=== PATIENT | male | born 1970 | race Caucasian/White ===

== ENCOUNTER 2018-01-06 14:09 | Inpatient (IN) | payer SELFPAY ==
--- NOTE | 2018-01-06 14:44 | CPEKG ---
Heart Rate: 61 RR Interval: 984 P-R Interval: 148 QRSD Interval: 96 QT Interval: 428 QTC Interval: 431 P [place]: 48 QRS [place]: 63 T Wave [place]: 58 EKG Severity - NORMAL ECG - EKG Impression: SINUS RHYTHM Electronically Signed By: Eliel Aguiar 06-Jan-2018 14:50:06
[2018-01-06] MEDS ORDERED: ONDANSETRON 4 MG/2 ML VIAL IVP ONE (14:46)
--- NOTE | 2018-01-06 14:49 | EDPHY ---
H & P Time Seen by Provider: 01/06/18 14:38 HPI/ROS: CHIEF COMPLAINT: Slurred speech HISTORY OF PRESENT ILLNESS: Patient was brought in by his "sister" at the request of his [id number]. 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 He has been having intermittent on and off slurred speech for at least the last month described as sometimes very slurred and other days back to normal. His sister also describes intermittent headache for the last 3 weeks but much worse since January 01. He has had a facial droop for the last 4 days. Today his sister and her went to check on him and he had much worse slurred speech difficulty walking and they brought him in. Symptoms are severe today. Associated with other neurologic symptoms as described above. Not better worse with anything. REVIEW OF SYSTEMS: Eye: no change in vision ENT: no sore throat Cardiac: no chest pain or syncope Pulmonary: no cough or SOB Abdomen: no vomiting, diarrhea, abdominal pain, nausea intermittently for the past month Musculoskeletal: no back pain or neck pain Skin: no rash Neuro: HPI Constitutional: no fever, decreased oral intake for at least 1 week : no urinary symptoms A comprehensive 10 point review of systems is otherwise negative aside from elements mentioned in the history of present illness. PAST MEDICAL HISTORY: Recent diagnosis of type 2 diabetes Social history: Brought in by his "sister" as she describes herself initially, although she is really a good friend who has known him since he was a child. T 36.4 General Appearance: Alert and cooperative. Eyes: No scleral icterus. ENT, Mouth: Dry mucous membranes. Respiratory: Normal respiratory effort, breath sounds equal, lungs are clear to auscultation. Cardiovascular: Regular rate and rhythm. Gastrointestinal: Abdomen is soft and non tender. Neurological: Alert, left facial droop, left hand 2/5 strength president financial institution strength. Toes are downgoing bilaterally and can lift each leg independently off the bed. Speech is understandable. Skin: Warm and dry, no rashes. Musculoskeletal: No peripheral edema. Psychiatric: Not agitated. Emergency Department course/MDM: Differential includes but not limited to ischemic stroke, intracranial mass, intracranial bleed, hypoglycemia, seizure disorder. Plan for EKG, labs, noncontrast head CT, admission with neurological or neurosurgical consultation. Not made a stroke alert because symptom duration greater than 24 hr. 1512: discussed on phone with his father, with patient's consent. 1534: Dr. Mena with patient. Recommends ICU admission, they will order MRI, no steroids until further diagnostics have been completed. Patient agitated and MRI, Neurosurgery consulted and requested 2 mg IV Ativan which was given; Mena. CTA reviewed with Dr. Samson shows no evidence of AVM at this point. Smoking Status: Former smoker Constitutional: Initial Vital Signs Heart Rate 58 L 01/06/18 14:29 Respiratory Rate 18 01/06/18 14:29 Blood Pressure 170/78 H 01/06/18 14:29 O2 Sat (%) 96 01/06/18 14:29 O2 Delivery Mode Room Air Allergies/Adverse Reactions: No Known Allergies Allergy (Unverified 01/06/18 14:29) Home Medications: Medication Instructions Recorded Herbals/Supplements -Info Only 1 ea PO DAILY 01/06/18 Ibuprofen [Motrin (*)] 200 mg PO Q6H PRN 01/06/18 Medical Decision Making - Diagnostics EKG Interpretation: 12-lead EKG interpreted by me; official reading is in trace master. My interpretation is sinus rhythm rate 61 no ischemic changes. Imaging Results: Imaging Impressions Head CT 01/06/18 14:46 Impression: Acute right frontal lobe and basal ganglia intraparenchymal hemorrhage 6.6 x 4.5 cm with leftward subfalcine herniation, uncal herniation, and tentorial herniation. Findings and recommendations discussed with Emergency Department physician, Eliel Aguiar at 1508 hour, 01/06/2018. Final report concurs with initial preliminary interpretation. A test result has been communicated to a licensed care provider and documented in the [facility] Critical Result system on 01/06/2018 15:12, Message ID [id number]. Head CTA 01/06/18 15:04 Impression: 1. Incidental focal calcified plaque right carotid bulb without encroachment upon the lumen. Otherwise, normal CT angiogram of the neck. 2. Normal CT angiogram of the [place], as detailed above. 3. No associated vascularity or enhancement with right posterior inferior frontal and right basal ganglia intraparenchymal hemorrhage. 4. Degenerative disk disease at C5-C6 with associated spinal and neuroforaminal stenoses. Note: All calculations were performed using NASCET criteria. Findings discussed with Eliel Aguiar M.D. at 15:45 hour, 01/06/2018. Neck CTA 01/06/18 15:04 Impression: 1. Incidental focal calcified plaque right carotid bulb without encroachment upon the lumen. Otherwise, normal CT angiogram of the neck. 2. Normal CT angiogram of the [place], as detailed above. 3. No associated vascularity or enhancement with right posterior inferior frontal and right basal ganglia intraparenchymal hemorrhage. 4. Degenerative disk disease at C5-C6 with associated spinal and neuroforaminal stenoses. Note: All calculations were performed using NASCET criteria. Findings discussed with Eliel Aguiar M.D. at 15:45 hour, 01/06/2018. Right-sided intracranial hemorrhage, reviewed with ned at 1510. Imaging: I viewed and interpreted images myself Consult/Admit Bed Type: [place] [id number], requested CTA will see pt in ED Critical Care Time: Critical care time spent by me, Dr. Aguiar, exclusively with the care of this patient was 30 minutes, exclusive of PA or PC MAINTENANCE TECHNICIAN time and exclusive of separate procedures. The organ system at risk was neurologic, including but not limited to obtaining history and multiple diagnostics and neurosurgical consultation to stabilize the patient and prevent worsening of the patient's condition. - Data Points Laboratory Results: Laboratory Results 01/06/18 14:33 01/06/18 14:33 01/06/18 01/06/18 01/06/18 15:07 14:33 14:33 WBC RBC Hgb POC Hgb Hct POC Hct MCV MCH MCHC RDW Plt Count MPV Neut % (Auto) Lymph % (Auto) [place] % (Auto) Eos % (Auto) Baso % (Auto) Nucleat RBC Rel Count Absolute Neuts (auto) Absolute Lymphs (auto) Absolute Monos (auto) Absolute Eos (auto) Absolute Basos (auto) Absolute Nucleated RBC Immature Gran % Immature Gran # PT 12.9 SEC SEC (12.0-15.0) INR 0.95 (0.83-1.16) POC Sodium Sodium 143 mEq/L mEq/L (135-145) POC Potassium Potassium 4.6 mEq/L mEq/L (3.5-5.2) POC Chloride Chloride 98 mEq/L mEq/L (97-110) Carbon Dioxide 22 mEq/l mEq/l (22-31) Anion Gap 23 mEq/L H mEq/L (8-16) POC BUN BUN 12 mg/dL mg/dL (7-23) Creatinine 0.7 mg/dL mg/dL (0.7-1.3) POC Creatinine Estimated GFR > 60 Glucose 188 mg/dL H mg/dL (70-100) POC Glucose Calcium 11.0 mg/dL H mg/dL (8.5-10.4) Phosphorus 4.4 mg/dL mg/dL (2.5-4.5) Patient ABO/Rh O POSITIVE Antibody Screen NEGATIVE 01/06/18 01/06/18 14:33 14:26 WBC 13.06 10^3/uL H 10^3/uL (3.80-9.50) RBC 5.56 10^6/uL 10^6/uL (4.40-6.38) Hgb 17.1 g/dL g/dL (13.7-17.5) POC Hgb 17.3 gm/dL gm/dL (13.7-17.5) Hct 49.3 % % (40.0-51.0) POC Hct 51 % % (40-51) MCV 88.7 fL fL (81.5-99.8) MCH 30.8 pg pg (27.9-34.1) MCHC 34.7 g/dL g/dL (32.4-36.7) RDW 12.6 % % (11.5-15.2) Plt Count 359 10^3/uL 10^3/uL (150-400) MPV 10.2 fL fL (8.7-11.7) Neut % (Auto) 85.7 % H % (39.3-74.2) Lymph % (Auto) 8.3 % L % (15.0-45.0) [place] % (Auto) 5.2 % % (4.5-13.0) Eos % (Auto) 0.2 % L % (0.6-7.6) Baso % (Auto) 0.1 % L % (0.3-1.7) Nucleat RBC Rel Count 0.0 % % (0.0-0.2) Absolute Neuts (auto) 11.19 10^3/uL H 10^3/uL (1.70-6.50) Absolute Lymphs (auto) 1.09 10^3/uL 10^3/uL (1.00-3.00) Absolute Monos (auto) 0.68 10^3/uL 10^3/uL (0.30-0.80) Absolute Eos (auto) 0.03 10^3/uL 10^3/uL (0.03-0.40) Absolute Basos (auto) 0.01 10^3/uL L 10^3/uL (0.02-0.10) Absolute Nucleated RBC 0.00 10^3/uL 10^3/uL (0-0.01) Immature Gran % 0.5 % % (0.0-1.1) Immature Gran # 0.06 10^3/uL 10^3/uL (0.00-0.10) PT INR POC Sodium 141 mEq/L mEq/L (135-145) Sodium POC Potassium 4.1 mEq/L mEq/L (3.3-5.0) Potassium POC Chloride 99 mEq/L mEq/L (97-110) Chloride Carbon Dioxide Anion Gap POC BUN 12 mg/dL mg/dL (7-23) BUN Creatinine POC Creatinine 0.7 mg/dL mg/dL (0.7-1.3) Estimated GFR Glucose POC Glucose 202 mg/dL H mg/dL (70-100) Calcium Phosphorus Patient ABO/Rh Antibody Screen Medications Given: Discontinued Medications Lorazepam (Ativan Injection) 2 mg IVP ONCE ONE Stop: 01/06/18 17:08 Last Admin: 01/06/18 17:13 Dose: 2 mg Ondansetron HCl (Zofran) 4 mg IVP EDNOW ONE Stop: 01/06/18 14:47 Last Admin: 01/06/18 15:09 Dose: 4 mg Point of Care Test Results: 01/06/18 14:26 POC Sodium 141 POC Potassium 4.1 POC Chloride 99 POC BUN 12 POC Creatinine 0.7 POC Glucose 202 H Departure - Departure Disposition: [facility] Inpatient Acute Clinical Impression: Intracranial hemorrhage Condition: Serious
[2018-01-06 14:54] LABS: PLATELET COUNT 359 10^3/uL (150-400)
[2018-01-06 14:59] LABS: INR 0.95 (0.83-1.16); PROTIME(PATIENT) 12.9 SEC (12.0-15.0)
[2018-01-06] MEDS ORDERED: IOPAMIDOL (ISOVUE 370) 100 ML BTL IV ONE (15:07)
[2018-01-06] MEDS ORDERED: ACETAMINOPHEN 325 MG TAB PO PRN (15:42)
[2018-01-06] MEDS ORDERED: ACET/CAFFEINE/BUTA FIORICET 1 EACH TAB PO PRN (15:47)
[2018-01-06] MEDS ORDERED: GADOBUTROL 10 ML VIAL IVP ONE (15:50)
[2018-01-06] MEDS ORDERED: ONDANSETRON 4 MG/2 ML VIAL IVP PRN (16:24)
--- NOTE | 2018-01-06 16:34 | NEUSURGPN ---
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, will continue to monitor exam in ICU -Keep SBP less than 140 -Please call neurosurgery with any questions/concerns Subjective: Patient headache has improved some in last couple of days but still present Objective: AxO x3 PERRLA 4OU EOMI Speech is slurred CN 2-12 grossly intact aside from left facial droop BUE 5/5 aside from 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
[2018-01-06] MEDS ORDERED: LORazepam 2 MG/ML INJ ONE (16:46)
[2018-01-06] MEDS ORDERED: LORazepam 2 MG/ML INJ IVP ONE (17:07)
--- NOTE | 2018-01-06 17:13 | ASMTLACE ---
ANTHONY Acuity / Level of Answers: Yes Care: Did the patient have an inpatient admission? Comorbidities - select Answers: Cerebrovascular disease all that apply (CVA, TIA, aneurysms, vasc ular dementia) Diabetes (uncontrolled or controlled) # of Emergency department Answers: 1-2 visits in the last 6 months Score: 6 Date Signed: 01/06/2018 05:13 PM Electronically Signed By:Jelly Patel RN
--- NOTE | 2018-01-06 17:24 | GHP ---
[f rep st] HISTORY AND PHYSICAL DATE OF ADMISSION: 01/06/2018 TITLE OF REPORT: Emergency Room History and Physical CHIEF COMPLAINT: Headache, slurred speech, and facial droop. HISTORY OF PRESENT ILLNESS: The patient is a 48-year-old gentleman who presented to the emergency department today with complaints of slurred speech. 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 He has been having on-and-off slurred speech for the last month. He has had intermittent headache for the last 3 weeks, but feels that had gotten much worse since January 01. He has noticed a facial droop for approximately 4 days. The patient was brought in by his close friend from childhood. He denies any other neurological symptoms at this time. REVIEW OF SYSTEMS: A 10-point review of systems was performed and negative aside from what was mentioned in the HPI. PAST MEDICAL HISTORY: Type 2 diabetes. Recently diagnosed approximately 2 months ago. Patient has lost approximately 40 pounds with changes in diet and exercise. CURRENT MEDICATIONS: None. 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 He does not drink alcohol. He stopped drinking with his diagnosis of diabetes. He does not smoke cigarettes or use nicotine products, which he has quit within the last year. He does smoke marijuana with a vapor pen daily. PAST FAMILY HISTORY: Mother has history of multiple sclerosis. Sister history of [place] Palsy. No significant tumor or cancer history in either mother or father. ALLERGIES: Patient denies any known drug allergies. PAST SURGICAL HISTORY: The patient underwent left arm surgery. LABORATORY RESULTS: White blood cell count is 13.06, hematocrit 49.3, hemoglobin 17.1, platelets are 359. PT 12.9, INR 0.95. Sodium is 143, potassium 4.6, BUN 12, creatinine 0.7, glucose is 188. IMAGING RESULTS: CT of the head performed without IV contrast demonstrates an acute right frontal lobe and basal ganglia intraparenchymal hemorrhage, 6.6 x 4.5 cm, with leftward subfalcine herniation, uncal herniation, and tentorial herniation. CTA of the head and neck demonstrates an incidental focal calcified plaque, right carotid bulb, without encroachment upon the lumen. Otherwise, a normal CT angio of the neck. Normal CT angio of [place] and there is no associated vascularity or enhancement with right posterior-inferior, frontal, and right basal ganglia intraparenchymal hemorrhage. There is degenerative disk disease noted at C5-6 with spinal neural foraminal stenosis. MRI of the brain with and without contrast is pending. PHYSICAL EXAM: VITAL SIGNS: Blood pressure is 164/91, heart rate is 66, respiratory rate 16, oxygen saturation is 96% on 3 L nasal cannula. Temperature is 36.4 degrees Celsius. The patient is in a normal sinus rhythm. HEENT: The head is normocephalic and atraumatic. His pupils are equal, round, and reactive to light for OU. EOM intact. Full visual [place] by confrontation. RESPIRATORY AND CARDIAC: Deferred. ABDOMEN: Deferred. GENITOURINARY AND RECTAL: Deferred. NEUROLOGIC: The patient is awake and alert , and oriented to name, place, location, date, time, and situation. His memory is intact to immediate, past, and current events. Speech: Some slurred speech noted throughout conversation. Cranial nerves 2-12 are grossly intact aside from a significant left facial droop. Motor: The patient has 5/5 strength in all muscle groups in bilateral upper and lower extremities to include deltoids, biceps, triceps. Airline Captain is 2/5 on the left, 5/5 on the right. Intrinsic fingers are equal. Iliopsoas is equal, 5/5. Quadriceps, hamstrings, plantar flexion, dorsiflexion, EHL testing are all 5/5. Sensation is grossly intact to light touch to all dermatomal distributions in bilateral lower extremities. Reflexes , biceps, triceps, brachioradialis, knee jerk, and ankle jerk are 2+ out of 4. Toes are downgoing bilaterally. Jillian sign is negative. Babinski is negative. No evidence of clonus. ASSESSMENT AND PLAN: Patient is a 48-year-old gentleman who presented to the emergency department with increasing slurred speech and migraine-type headaches. The patient underwent a CT of the brain and was found to have a significant right frontal lobe hemorrhage with mass effect. CTA of the head and neck were performed to rule out arteriovenous malformation and were negative aside from some incidental findings. We will order an MRI of the brain with and without contrast for further evaluation. The patient will be admitted to us and to the intensive care unit for monitoring of his exam. Based on the MRI findings, if there is a mass indicated, we may consider ordering Decadron at that time to help with the swelling and hopeful that this too would help with the headaches. We will try to avoid giving this patient any narcotics at this time so that we can have a clear exam. We will order oral Tylenol as well as Fioricet for pain management. Hospitalists have been consulted and will follow this patient as well. We appreciate their help in managing his medical needs. The patient was seen and examined in the emergency department by myself and Dr. Sky Mena today, January 06, 2018 at 1545. /[id number]/MODL MTDD
--- NOTE | 2018-01-06 18:58 | PDGENHP ---
History and Physical History and Physical: CC: Administered by Dr. Blake Mena to us assist in the care of this patient who comes in with acute parenchymal brain hemorrhage and has a history of diabetes HISTORY: This patient comes into the emergency room today with worsening headache and neurologic symptoms. It sounds like the symptoms and been going on for a few weeks perhaps longer and have included intermittent headaches, intermittent slurred speech, facial droop now possibly some other more diffuse weakness. There has been no history of injury or seizures and no fevers. The patient has not been assessed with any imaging studies for this set of symptoms in the past. A lot of history is coming to me through his close friend with whom he lives and she is here at his bedside. 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 He has been living in their house. The patient himself is currently sedated after having some Ativan for an MRI scan and is not really able to give me a whole lot more history at this time. His friend tells me that he was diagnosed with hypertension and diabetes several months ago. He worked with his primary care physician on this and quit drinking, changed his diet, and began exercising regularly and had significant improvement in his sugars and his blood pressures. It was felt that he did not need any medications at this time for these abnormalities. It sounds like he has otherwise been quite healthy over time. It is unclear to me at this time how much alcohol the patient used to drink. 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 No current alcohol formally was a alcohol drinker No street drugs or tobacco some marijuana use MEDICATIONS: The patients list has been reconciled by our clinical pharmacist in the EMR. I have reviewed the list and ordered appropriate medicines. 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 Examination: General: Fairly somnolent but arousable after a dose of Ativan for his MRI, able to speak to me but his speech is certainly slurred at this time Neurologic: Pupils round equal and reactive, there is some mild facial asymmetry, his motor exam of the limbs and trunk is hard to assess due to his somnolence at this time as are his mentation another cognitive functions; no tremor or fasciculations nothing that looks like seizure Skin: warm, dry, good color, no rash HEENT: normal Neck: no mass or jvd Resps: relaxed Lungs: clear breath sounds Heart: regular, no murmur Abdomen: soft, nondistended, nontender, +BS, no mass Upper Extremities: There is a scar from a previous surgery in the middle of his left forearm that is well healed, otherwise normal Lower Extremities: no edema, warm No Bleeding or bruising IV site: looks normal LABORATORY DATA: Chemistries remarkable for moderate hyperglycemia, and a calcium of 11 though and albumin is not currently available His white blood cell count is mildly elevated but CBC otherwise unremarkable RADIOLOGY STUDIES: I reviewed images from his CT scan of brain as well as MRI of brain and with the radiology reports from the studies as well. There is an obvious very large intraparenchymal right-sided brain hemorrhage with significant surrounding edema , near obliteration of the right cerebral ventricles and some midline shift to the left. There is no apparent mass or vascular malformation. No evidence of fractures or other signs of trauma 12 LEAD EK lead EKG was done in the ER, but I am unable to access this as I am having trouble getting into the EKG software in our system here tonight but I have been told by the ER staff that it did not show any arrhythmia. I am attempting to get hold of the EKG takes to see if I can get into their system and see this ASSESSMENT: 1- large intraparenchymal hemorrhage in a 48-year-old man without injury. There is a history of hypertension though he reportedly has had better blood pressures after quitting drinking alcohol in improving his diet and activities. He comes in with higher blood pressures tonight, though these could potentially be caused by his bleed as opposed to a cause of the bleed I would consider the possibility that this is a hypertensive bleed. Certainly at this time will want have tight control of his blood pressure and I will review further with the Neurosurgery team. This bleed is fairly symptomatic with progressive neurologic symptoms and he may need surgery which I have not reviewed with the surgery team at this point. 2-elevated blood pressures and history of hypertension -Will need to begin treatment with medications for control of this now; the Neurosurgery team has ordered some p.r.n. Hydralazine and noted systolic Of 140 as a target blood pressure with which I agree. I will add other medicines however at this point and will need to follow this very closely -current systolic is greater than 160 3-type 2 diabetes mellitus not on any medications at present -will want to control this but it will be important to avoid hypoglycemia, and he has not had any exposure to insulin or hypoglycemic medicines -initial goal would be blood sugars less than 180; if steroids are added treatment will need to be more aggressive but the risk of hypoglycemia would be less PLANS: -follow blood pressures closely treat to < 140 syst, I have added prn labetalol -follow sugars closely, goal < 180 with no low sugars; he will be npo at moment (current 188) will put a sliding scale in place but may need to use scheduled dosing of insulin which is usually more effective -no anticoagulants I have reviewed the patient's case in detail with Dr. Blake Mena
[2018-01-06] MEDS: DEXAMETHASONE 4 MG/ML VIAL IVP SCH (20:52)
[2018-01-06] MEDS ORDERED: D50W 25 GM/50 ML VIAL IVP PRN (23:25)
[2018-01-07] MEDS: DEXAMETHASONE 4 MG/ML VIAL IVP SCH ×3 (00:06→17:38)
[2018-01-07] MEDS: hydrALAZINE 20 MG/ML VIAL IVP PRN (00:06)
--- NOTE | 2018-01-07 07:44 | NEUSURGPN ---
Assessment/Plan: Assessment: 48 yr with right frontal hemorrhage with mass effect, presented with facial droop and slurred speech Plan: -CTA negative for AVM -MRI brain w/wo non conclusive for tumor -Started Decadron last evening, patient reports improvement in headaches -Will start MIV NS @100ml/hr-may need to adjust pending na -CBC, CMP and type and screen ordered for now -Patient more somnolent this am, heart rate ranging from 30's to 100's -Will get STAT head CT now with Stealth protocol -Keep SBP less than 140 -Patients father is in route from [place] -Patient discussed with Dr Lambert, Dr Mena will see patient -Please call neurosurgery with any questions/concerns Subjective: Patient extremely drowsy, able to follow commands Objective: Oriented to self, answers questions Follows commands Hard to keep eyes open PERRLA 4mm OU LUE weakness Facial droop Neuro Check Frequency: per routine Urinary Catheter in Place: No - Physician Discussed Patient with : Fausto Patient Seen by : Rajesh Neurosurgery Physical Exam - Vitals, I&O, Labs I and O 01/06/18 01/07/18 01/08/18 05:59 05:59 05:59 Output Total 400 Balance -400 Weight 79.37 kg Output: Urine (ml) 400 Toilet 400 Vital Signs Temp Pulse Resp BP Pulse Ox 36.6 C 60 18 136/64 H 96 01/06/18 20:00 01/07/18 03:00 01/07/18 03:00 01/07/18 03:00 01/07/18 03:00 ICD10 Worksheet Patient Problems: Problems Problem Status Onset Intracranial hemorrhage Acute
[2018-01-07] MEDS ORDERED: ATROPINE SULFATE 1 MG/10 ML SYR ONE (07:46)
[2018-01-07] MEDS ORDERED: SURGIFLO MATRIX KIT WITH THROMBIN 8ml TP ONE (08:11)
[2018-01-07 08:12] LABS: PLATELET COUNT 281 10^3/uL (150-400)
[2018-01-07] MEDS ORDERED: GENTAMICIN SULFATE 80 MG/2 ML VIAL ONE ×3 (08:12→09:58)
[2018-01-07] MEDS ORDERED: AVITENE POWDER 1 GM JAR TP ONE (08:12)
[2018-01-07] MEDS ORDERED: THROMBIN (BOVINE) 5,000 UNIT VIAL TP ONE (08:12)
[2018-01-07] MEDS ORDERED: POVIDONE-IODINE 30 GM OINTTUBE TP ONE (08:12)
[2018-01-07] MEDS ORDERED: MANNITOL 20% 100 GM/500 ML BAG IV ONE (08:12)
[2018-01-07] MEDS ORDERED: HYDROGEN PEROXIDE 236 ML BOTTLE TP ONE (08:12)
[2018-01-07] MEDS ORDERED: BACITRACIN ZINC 14.2 GM OINTTUBE TP ONE (08:12)
[2018-01-07] MEDS ORDERED: ceFAZolin 2 GM/SWFI 2 GM/20 ML SYR IVP ONE (08:30)
[2018-01-07] MEDS ORDERED: PROPOFOL/EMULSION 500 MG/50 ML BOTTLE IV ONE ×3 (08:33→11:15)
[2018-01-07] MEDS ORDERED: fentaNYL 250 MCG/5 ML INJ ONE ×4 (08:40→12:12)
[2018-01-07] MEDS ORDERED: BUPIVACAINE 0.25% 30 ML SDV ONE (08:42)
[2018-01-07] MEDS ORDERED: levETIRAcetam 1000MG/NACL 100 ML IV ONE (09:15)
--- NOTE | 2018-01-07 10:06 | PDANEPAE ---
ANE History of Present Illness 48 year old with right side intracranial bleed for emergent crani ANE Past Medical History - Pulmonary History Hx Oxygen in Use at Home: No Hx Sleep Apnea: No Sleep Apnea Screening Result - Last Documented: Negative - Endocrine History Hx Diabetes: Yes ANE Review of Systems Review of Systems: ANE Patient History - Allergies Allergies/Adverse Reactions: No Known Allergies Allergy (Unverified 01/06/18 14:29) - Home Medications Home Medications: Herbals/Supplements -Info Only 1 ea PO DAILY 01/06/18 [Last Taken 01/06/18 08:30 ] Ibuprofen [Motrin (*)] 200 mg PO Q6H PRN 01/06/18 [Last Taken 01/06/18 09:00] - NPO status NPO Since - Liquids (Date): 01/06/18 NPO Since - Solids (Date): 01/06/18 - Anes Hx Anes Hx: no prior problems - Smoking Hx Smoking Status: Former smoker - Alcohol Use Alcohol Use: Other (Hx of moderate ETOH use, quite in September?) ANE Labs/Vital Signs - Labs Result Diagrams: 01/07/18 07:40 01/07/18 07:40 - Vital Signs Blood Pressure: 144/72 Heart Rate: 50 Respiratory Rate: 18 O2 Sat (%): 92 Height: 177.8 cm Weight: 79.37 kg ANE Physical Exam - Airway Neck exam: FROM - Pulmonary Pulmonary: no respiratory distress, clear to auscultation - Cardiovascular Cardiovascular: regular rate and rhythym - ASA Status ASA Status: IV, E (Pt very somulent, opens eyes to stimulation) ANE Anesthesia Plan Anesthesia Plan: general endotracheal anesthesia Lines/Monitors: arterial line Urgent/Emergent Case: Yun paredes completed preop but documented later for safe timely pt care
[2018-01-07] MEDS ORDERED: ALTEPLASE 2 MG VIAL IVP PRN ×2 (10:40→13:14)
[2018-01-07] MEDS: INSULIN LISPRO 100 UNIT/ML SC SCH ×3 (11:49→18:15)
[2018-01-07] MEDS ORDERED: niCARdipine/NACL 200 ML IV ONE (12:00)
[2018-01-07] MEDS ORDERED: niCARdipine/NACL 200 ML IV PRN (12:17)
--- NOTE | 2018-01-07 12:27 | POSTOPPROG ---
Post Op Note Date of Operation: 01/07/18 Surgeon: Baron Brown Milk Drier: Baron Brown pac Anesthesiologist: teetee Warm Anesthesia: GET(General Endotracheal) Pre-op Diagnosis: ICH Post-op Diagnosis: ICH Indication: AMS, obtundation Procedure: right frontotemporal craniotomy Findings: brain swelling, clots, see full dictation for details Inf/Abcess present in the surg proc area at time of surgery?: No Depth: Organ Space EBL: 100-500
[2018-01-07] MEDS ORDERED: NS W/ 20 KCl/L 1,000 ML IV SCH (12:30)
[2018-01-07] MEDS ORDERED: NS IV SCH (12:30)
[2018-01-07] MEDS ORDERED: LEVETIRACETAM IV SCH (12:30)
[2018-01-07] MEDS ORDERED: PROPOFOL/EMULSION 1,000 MG/100 ML BOTTLE IV ONE (12:58)
[2018-01-07] MEDS ORDERED: fentanYL/NACL/100 ML BAG IV ONE (13:09)
[2018-01-07] MEDS ORDERED: fentaNYL 100 MCG/2 ML INJ IVP PRN (13:23)
[2018-01-07] MEDS ORDERED: fentaNYL/NACL 100 ML IV SCH (13:23)
[2018-01-07] MEDS ORDERED: MANNITOL 25% 12.5 GM/50 ML VIAL IV ONE (13:30)
[2018-01-07] MEDS ORDERED: MANNITOL 20% 50 GM/250 ML BAG IV ONE (13:30)
[2018-01-07] MEDS: VECURONIUM BROMIDE 50 MG in D5W 50 ML IV SCH (13:35)
[2018-01-07 13:44] LABS: PLATELET COUNT 239 10^3/uL (150-400)
[2018-01-07] MEDS: PROPOFOL/EMULSION 100 ML IV SCH ×2 (13:45→17:29)
[2018-01-07 13:58] LABS: INR 1.06 (0.83-1.16)
[2018-01-07] MEDS ORDERED: SODIUM Cl 3% 500 ML IV SCH (14:00)
--- NOTE | 2018-01-07 14:14 | GCON ---
[f rep st] CONSULTATION CRITICAL CARE CONSULT DATE OF CONSULTATION: 01/07/2018 HISTORY OF PRESENT ILLNESS: This patient is a 48-year-old male admitted yesterday with slurred speec h off and on for about a month and then developed a severe headache and had facial droop. The CT sca n of his head showed a large frontal intracranial hemorrhage with a mass effect and shift. He was se en by Neurosurgery and after imaging studies, was started on Decadron, IV fluids and observed overnig ht. Earlier this morning, however, he had worsening mental status changes and episodes of bradycardi a down to the 30s with normal blood pressures, was taken to the operating room today by Dr. Lambert. He had substantial bleeding intraoperatively, which was difficult to control. There was no intracran ial tumor identified, but he was brought back to the intensive care unit, intubated and paralyzed and sedated with a very poor prognosis. Hemodynamically, he has been quite stable since his return from the operating room with a heart rate in the 50s and a normal blood pressure without pressors. His i ntracranial pressure has been in the 20s despite maximum efforts along those lines. REVIEW OF SYSTEMS: Otherwise negative per the chart. PAST MEDICAL HISTORY: From the chart as well. This includes hypertension, diabetes, previous alcoho l but current amount is unknown. SOCIAL HISTORY: He is a nonsmoker with the exception of some marijuana. MEDICATIONS: At this time, includes Ancef, Decadron, Pepcid, fentanyl, propofol, hydralazine p.r.n., insulin, labetalol p.r.n., Keppra, nicardipine, and vecuronium. PHYSICAL EXAMINATION: VITAL SIGNS: His blood pressure was 122/75, with a heart rate of 52, afebrile , breathing with the ventilator which was set on IMV with a rate of only 8, tidal volume of 600, PEEP of 0, FiO2 of 100%. GENERAL: He was unresponsive, as expected, but in no clear distress at least f rom a vital signs perspective. HEENT: Pupils were small and minimally reactive, and equal bilateral ly. Sclerae were nonicteric and noninjected. Endotracheal tube appeared to be in good position. RE SPIRATORY: Breath sounds were clear to auscultation bilaterally without wheezes, rubs or rales. HEA RT: Regular rate and rhythm without obvious murmur. ABDOMEN: Soft, nondistended with hypoactive lorraine wel tones. EXTREMITIES: No clubbing, cyanosis, or edema, or evidence of trauma. SKIN: Warm and dr y without evidence of rash. OBJECTIVE DATA: Includes the CT scans as described above. His white count was 8.4 this morning, hem atocrit 46, platelets of 281. Basic metabolic panel was essentially normal including creatinine 0.6. LFTs were also normal. ASSESSMENT AND PLAN: 1. Severe intracranial hemorrhage of uncertain etiology, that may have been a thrombosed cerebral ve nous sinus that subsequently has bled with a worsening clinical course. Dr. Lambert is speaking with the family now. I believe the father is en route from [place] as we speak, but the prognosis is quite p oor. In the meantime, we will continue with intensive care unit support. 2. Respiratory failure due to #1 and hypoxemia. He seems to be relatively stable at this time. Dis cussed the case with Dr. Lambert. We will shoot for a CO2 of about 35-40, and monitor with normal oxy gen saturations. 3. Diabetes. We can control this using an insulin drip as needed for blood sugars of 120-140 as bes t as possible. 4. Increased intracranial pressure. Management per Neurosurgery, but we will be following closely. 5. A total of about 45 minutes of critical care time was required for the management of this patient. /[id number]/MODL
--- NOTE | 2018-01-07 14:49 | NEUSURGPN ---
Date of Surgery: 01/07/18 Post Op Day: 0 Assessment/Plan: 48M s/p right sided frontotemporal craniectomy for evacuation of right frontal IPH with midline shift and declined neurologic exam as well as insertion of ICP monitor. Post operative CT shows continued hemorrhage and slightly improved MLS. ICP's continue to be 25-40. prognosis currently guarded. Plan: -HOB>30 -abx for 24 hours post op -keppra 1000mg BID -SBP<140 -neurochecks pupils only -ICP monitoring continuous -JPx1 to thumbprint suction -start 3% nacl for goal 155-160 -heavy sedation fentanyl/versed/propofol/vecuronium to attempt to manage ICP's< 20, will induce phenobarb coma if unsuccessful with sedation -vent per crit care -notify NS of ICP's >40 -Dr. Lambert to speak with the family Subjective: sedated, paralyzed, unresponsive Objective: fully sedated and paralyzed pupils equal 3mm dressing CDI Catheter Insertion Date: 01/07/18 - Physician Discussed Patient with Dr.: Lambert Patient Seen by : Fausto Neurosurgery Physical Exam - Vitals, I&O, Labs I and O 01/06/18 01/07/18 01/08/18 05:59 05:59 05:59 Output Total 400 Balance -400 Weight 79.37 kg 79.37 kg Output: Urine (ml) 400 Toilet 400 Microbiology 01/07/18 12:04 Mycobacterial Smear ([facility]) - Final Head - Eswab Mycobacterial Culture - Final Vital Signs Temp Pulse Resp BP Pulse Ox 36.6 C 56 L 14 126/68 H 100 01/07/18 13:30 01/07/18 13:47 01/07/18 13:47 01/07/18 13:47 01/07/18 13:47 Laboratory Results 01/07/18 13:30 01/07/18 13:30 ICD10 Worksheet Patient Problems: Problems Problem Status Onset Intracranial hemorrhage Acute
[2018-01-07] MEDS: SODIUM Cl 3% 500 ML IV SCH (15:00)
[2018-01-07] MEDS: levETIRAcetam 1000MG/NACL 100 ML IV SCH ×2 (15:26→20:42)
[2018-01-07] MEDS: NS 1,000 ML IV SCH (15:53)
[2018-01-07] MEDS: NOREPINEPHRINE BITARTRATE 4 MG in NS 500 ML IV SCH (15:54)
[2018-01-07] MEDS ORDERED: PROTOCOL POTASSIUM 1 DOSE MISC PRN (15:59)
--- NOTE | 2018-01-07 16:03 | HOSPPROG ---
Hospitalist Progress Note Assessment/Plan: 48 yo M w large ICH ICH: s/p evacuation elevated ICP: aggressive management per neurosurgery htn: prn management goal sbp 140 proph: scd's dm: follow blood sugars goal < 180 Subjective: case d/w dr bazzi. post op course c/b marked elevated ICP Objective: Vital Signs Temp Pulse Resp BP Pulse Ox 36.6 C 56 L 14 126/68 H 100 01/07/18 13:30 01/07/18 13:47 01/07/18 13:47 01/07/18 13:47 01/07/18 13:47 Microbiology 01/07/18 12:04 Gram Stain - Final Head - Eswab 01/07/18 12:04 Mycobacterial Smear ([facility]) - Final Head - Eswab Mycobacterial Culture - Final Laboratory Results 01/07/18 13:30 01/07/18 13:30 01/06/18 01/07/18 01/08/18 05:59 05:59 05:59 Output Total 400 Balance -400 PT 14.0 SEC (12.0-15.0) 01/07/18 13:30 INR 1.06 (0.83-1.16) 01/07/18 13:30 - Physical Exam Constitutional: other (intubated, sedated, paralyzed) Eyes: anicteric sclera Ears, Nose, Mouth, Throat: moist mucous membranes Cardiovascular: regular rate and rhythym, no murmur, rub, or gallop Respiratory: no respiratory distress Gastrointestinal: normoactive bowel sounds, soft, non-tender abdomen Genitourinary: no bladder fullness, montano in urethra Skin: warm, normal color Musculoskeletal: No full muscle strength Neurologic: No AAOx3 ICD10 Worksheet Patient Problems: Problems Problem Status Onset Intracranial hemorrhage Acute
--- NOTE | 2018-01-07 16:19 | ASMTCASEMG ---
Living Arrangements What is your living Answers: Alone arrangement? Who do you live with? Type Of Residence What kind of residence do Answers: House you live in? Discharge Plan Comments Coordination Status Comments Notes: Patient is a 48yo single male who was admitted for an acute parenchymal brain hemorrhage which has gone on for 1 month due to PCP not diagnosing. Patient was taken for an emergent bone flap and evacuation of a hematoma. Patient is not doing well. Family has left for the day. Will meet with friend and family tomorrow. CM will follow. Date Signed: 01/07/2018 04:18 PM Electronically Signed By:Vaishnavi Tatum LCSW
[2018-01-07] MEDS: CHLORHEXIDINE GLUCONATE 15 ML UDL PO SCH ×2 (17:35→20:42)
[2018-01-07] MEDS: FAMOTIDINE 20 MG/NACL 50 ML IV SCH (20:42)
[2018-01-08] MEDS: PROPOFOL/EMULSION 100 ML IV SCH (00:15)
[2018-01-08] MEDS: VECURONIUM BROMIDE 50 MG in D5W 50 ML IV SCH (00:15)
[2018-01-08] MEDS ORDERED: POTASSIUM Cl (KCl) 50 ML IV ONE ×2 (01:30→08:26)
[2018-01-08] MEDS: NOREPINEPHRINE BITARTRATE 4 MG in NS 500 ML IV SCH (01:56)
[2018-01-08] MEDS: SODIUM Cl 3% 500 ML IV SCH (01:56)
[2018-01-08] MEDS ORDERED: ACETAMINOPHEN 650 MG SUPP PR ONE (05:22)
[2018-01-08] MEDS ORDERED: PETROLAT,WHT/MIN OIL/SOD CHL 3.5 GM OPHT.OINT EACHEYE PRN (08:27)
[2018-01-08] MEDS: INSULIN LISPRO 100 UNIT/ML SC SCH ×3 (08:27→17:47)
[2018-01-08] MEDS: FAMOTIDINE 20 MG/NACL 50 ML IV SCH ×2 (08:37→20:52)
[2018-01-08] MEDS: levETIRAcetam 1000MG/NACL 100 ML IV SCH ×2 (08:37→20:52)
[2018-01-08] MEDS: CHLORHEXIDINE GLUCONATE 15 ML UDL PO SCH ×2 (08:39→20:53)
[2018-01-08] MEDS ORDERED: PENTOBARBITAL SODIUM 1,000 MG in D5W 250 ML IV SCH (09:16)
[2018-01-08] MEDS ORDERED: NARCOTIC DRIP BAG-TOTAL ALL TYPES IV PRN (09:16)
[2018-01-08] MEDS ORDERED: MANNITOL 25% 12.5 GM/50 ML VIAL IVP ONE (09:30)
[2018-01-08] MEDS: LABETALOL HCL 5 MG/ML 20 ML MDV IVP PRN ×2 (09:42→20:52)
--- NOTE | 2018-01-08 09:56 | PDINTPN ---
Orthopedic Nurse Practitioner Progress Note Assessment/Plan: Assessment: S/P Large ICH: Cause uncertain. High ICPs >30 persist despite craniectomy, sedation, paralysis, hypernatremia, and now pentobarbital coma. ICP down from 50s to low 40s after hydralazine, pentobarb bolus, and labetalol to reduce SBP from 200+ to 110-120. Prognosis remains poor. HTN: Severe, likely due to high ICP. Now responded to hydralazine 20mg, pentobarb 80mg, and finally labetalol 20mg, all after failure to control BP with nicardipine, propofol, and fentanyl. Respiratory Failure: Well-ventilated on vent. Diabetes: BSs low-mid 100s, not requiring insulin. Plan: Continue efforts to control BP. Labetalol seemed to have the greatest effect, pentobarb may have also had an effect, given shortly before labetalol. Later: Pupils now fixed and dilated. Discussed with Dr. Nichole and father/ friends. No meaningful chance of recovery. Probably brain or impending brain . Father wishes to change status to DNR. Pentobarb discontinued. They 're discussing organ donation. 50min CC time, at bedside managing critical HTN and markedly elevated ICP, discussing with family. 01/08/18 10:01 01/08/18 11:00 Subjective: Intubated, sedated, paralyzed. Objective: Vital Signs Temp Pulse Resp BP Pulse Ox 37.5 C 44 L 12 125/65 H 100 01/08/18 08:40 01/08/18 08:40 01/08/18 08:40 01/08/18 08:00 01/08/18 08:40 Microbiology 01/07/18 12:04 Gram Stain - Final Head - Eswab 01/07/18 12:04 Mycobacterial Smear ([facility]) - Final Head - Eswab Mycobacterial Culture - Final Laboratory Results 01/07/18 13:30 01/08/18 05:50 01/07/18 01/08/18 01/09/18 05:59 05:59 05:59 Intake Total 4099 Output Total 400 2405 Balance -400 1694 PT 14.0 SEC (12.0-15.0) 01/07/18 13:30 INR 1.06 (0.83-1.16) 01/07/18 13:30 CXR: Ri Laboratory Tests 01/08/18 05:55 pCO2 33 L pO2 104 H Total CO2 24 ABG pH 7.45 ABG HCO3 23 ABG O2 Saturation 97 H O2 Concentration % 40 Respiration Rate 12 Assist Control YES Tidal Volume 600 ght infrahilar infiltrate. Images reviewed by me. Physical Exam - Physical Exam General Appearance: alert EENT: other (s/p craniectomy right) Neck: normal inspection Respiratory: lungs clear Cardiac/Chest: regular rate, rhythm, No edema Abdomen: normal bowel sounds, non-tender Skin: normal color, warm/dry Extremities: normal inspection Neuro/Psych: No alert (pentobarb coma, paralyzed) ICD10 Worksheet Patient Problems: Problems Problem Status Onset Intracranial hemorrhage Acute
[2018-01-08] MEDS ORDERED: hydrALAZINE 20 MG/ML VIAL IVP ONE (10:45)
--- NOTE | 2018-01-08 11:12 | NEUSURGPN ---
Assessment/Plan: Assessment/Plan: 48M s/p right sided frontotemporal craniectomy for evacuation of right frontal IPH with midline shift and declined neurologic exam as well as insertion of ICP monitor. Post operative CT shows continued hemorrhage and slightly improved MLS. Plan: -ICPs overnight were 33-37, but increased to > 60 this morning, after this, mannitol was given and pentobarb was started, he was continued to be cooled but despite all medical management efforts, his pupils then became fixed and dilated at 8mm. -Family meeting was held with patient's father and was explained that due to maximum medical and surgical management, unfortunately this is no survivable. The family expressed understanding and wishes to proceed with making the patient DNR. -[facility] has been contacted -Pentobarb stopped and 3% stopped -Dr. Lambert is aware of the events as well and Dr. Nichole acted as proxy for him for family meeting as he is currently at another hospital. Subjective: sedated, paralyzed, unresponsive, pupils fixed and dilated. Objective: fully sedated and paralyzed pupils fixed, dilated at 8mm ICP 60 dressing CDI Catheter Insertion Date: 01/07/18 - Physician Discussed Patient with : Fausto Patient Seen by : Fausto Neurosurgery Physical Exam - Vitals, I&O, Labs I and O 01/07/18 01/08/18 01/09/18 05:59 05:59 05:59 Intake Total 4099 Output Total 400 2405 Balance -400 1694 Weight 79.37 kg 84.5 kg Intake: IV Intake (ml) 2200 IV Infused (ml) 1899 Norepinephrine Bitartrate 596 4 mg In Ns 500 ml @ Per Protocol IV CONT [facility]ARK Rx#: [id number] Ns 1,000 ml @ 50 mls/hr 97 IV CONT PARK Rx#: [id number] Propofol/Emulsion 100 ml 257 @ Per Protocol IV CONT [facility]ARK Rx#:[id number] SODIUM Cl 3% 500 ml @ As 686 Directed IV CONT PARK Rx#: [id number] Vecuronium [place] 50 mg 89 In D5w 50 ml @ Per Protocol IV CONT PARK Rx#: [id number] fentaNYL/NACL 100 ml @ 174 Per Protocol IV CONT PARK Rx#:[id number] Output: Urine (ml) 400 1850 Catheter 1850 Toilet 400 Estimated Blood Loss (ml) 400 CARLY Drain Output (ml) 155 Posterior Head 155 Microbiology 01/07/18 12:04 Gram Stain - Final Head - Eswab 01/07/18 12:04 Mycobacterial Smear ([facility]) - Final Head - Eswab Mycobacterial Culture - Final Vital Signs Temp Pulse Resp BP Pulse Ox 37.5 C 44 L 12 125/65 H 100 01/08/18 08:40 01/08/18 08:40 01/08/18 08:40 01/08/18 08:00 01/08/18 08:40 Laboratory Results 01/07/18 13:30 01/08/18 05:50 ICD10 Worksheet Patient Problems: Problems Problem Status Onset Intracranial hemorrhage Acute
--- NOTE | 2018-01-08 14:58 | HOSPPROG ---
Hospitalist Progress Note Assessment/Plan: 48 yo M w large ICH ICH: s/p evacuation elevated ICP: aggressive management per neurosurgery very high pressures portend dismal prognosis measures to reduce ICP stopped [facility] called htn:no further mangement given above proph: scd's dm: follow blood sugars goal < 180 Subjective: markedly elevated ICP. case d/w dr diaz. family meeting (iwas not in attendance) relayed no chance of meaningful neurolgic recovery Objective: Vital Signs Temp Pulse Resp BP Pulse Ox 35.4 C L 47 L 13 138/76 H 99 01/08/18 12:50 01/08/18 12:50 01/08/18 12:50 01/08/18 12:50 01/08/18 12:50 Microbiology 01/07/18 12:04 Gram Stain - Final Head - Eswab 01/07/18 12:04 Mycobacterial Smear ([facility]) - Final Head - Eswab Mycobacterial Culture - Final Laboratory Results 01/07/18 13:30 01/08/18 05:50 01/07/18 01/08/18 01/09/18 05:59 05:59 05:59 Intake Total 4099 Output Total 400 2405 950 Balance -400 1694 -950 PT 14.0 SEC (12.0-15.0) 01/07/18 13:30 INR 1.06 (0.83-1.16) 01/07/18 13:30 - Physical Exam Constitutional: other (unresponsive) Eyes: No PERRL Ears, Nose, Mouth, Throat: moist mucous membranes Cardiovascular: regular rate and rhythym, bradycardia Respiratory: no respiratory distress Gastrointestinal: normoactive bowel sounds Genitourinary: montano in urethra Skin: warm Musculoskeletal: No full muscle strength Neurologic: No AAOx3 Psychiatric: No interacting appropriately ICD10 Worksheet Patient Problems: Problems Problem Status Onset Intracranial hemorrhage Acute
--- NOTE | 2018-01-08 16:22 | ASMTCMCOM ---
CM Note CM Note Notes: Neurology met with the patient's family and friends today to inform them that the patient was not going to survive. Patient's father changed his status to DNR. They are discussing organ donation. Patient's sister is on her way here from [place] and will probably arrive tomorrow. Spiritual care has met with the family and has the confidential investigator chaplains briefed of the circumstances. It is anticipated patient's sister will arrive tomorrow on Thursday01-09-18. CM will follow. Date Signed: 01/08/2018 04:21 PM Electronically Signed By:Vaishnavi Tatum LCSW
[2018-01-08] MEDS ORDERED: DESMOPRESSIN ACETATE IV ONE (17:30)
[2018-01-08] MEDS ORDERED: D5W 1/2 NS W/ 20 KCl/L 1,000 ML IV SCH (17:30)
[2018-01-08] MEDS ORDERED: NS IV ONE (17:30)
[2018-01-09 06:05] LABS: PLATELET COUNT 197 10^3/uL (150-400)
[2018-01-09] MEDS: hydrALAZINE 20 MG/ML VIAL IVP PRN (07:21)
[2018-01-09] MEDS: LABETALOL HCL 5 MG/ML 20 ML MDV IVP PRN (07:25)
[2018-01-09] MEDS: INSULIN LISPRO 100 UNIT/ML SC SCH ×2 (08:37→11:39)
[2018-01-09] MEDS: FAMOTIDINE 20 MG/NACL 50 ML IV SCH (08:37)
[2018-01-09] MEDS: levETIRAcetam 1000MG/NACL 100 ML IV SCH (08:37)
[2018-01-09] MEDS ORDERED: DOPamine/DEXTROSE/250 ML BAG IV ONE (08:41)
[2018-01-09] MEDS: CHLORHEXIDINE GLUCONATE 15 ML UDL PO SCH (08:43)
--- NOTE | 2018-01-09 09:56 | SOAPPROG ---
SOAP Progress Note Assessment/Plan: Assessment: 48 yo M POD #2 right craniectomy for large ICH Plan: neuro: ICP > 100 this am continue aggresive care until care transferred to [facility] please call with neuro changes discussed with DR Johnson 01/09/18 09:54 Subjective: chart reviewed Objective: Vital Signs Temp Pulse Resp BP Pulse Ox 35.7 C L 100 13 94/52 L 98 01/09/18 09:00 01/09/18 09:00 01/09/18 09:04 01/09/18 09:00 01/09/18 09:04 Microbiology 01/07/18 12:04 Gram Stain - Final Head - Eswab Laboratory Results 01/09/18 05:50 01/09/18 05:50 01/08/18 01/09/18 01/10/18 05:59 05:59 05:59 Intake Total 4099 1974 Output Total 2405 3505 Balance 1694 -1531 PT 14.0 SEC (12.0-15.0) 01/07/18 13:30 INR 1.06 (0.83-1.16) 01/07/18 13:30 intubated Pupils: 8 mm fixed GCS - 3 ICD10 Worksheet Patient Problems: Problems Problem Status Onset Intracranial hemorrhage Acute
[2018-01-09] MEDS ORDERED: PROTOCOL POTASSIUM 1 DOSE MISC PRN (11:16)
[2018-01-09] MEDS ORDERED: POTASSIUM Cl (KCl) 50 ML IV SCH (11:30)
[2018-01-09] MEDS: POTASSIUM Cl (KCl) 10 MEQ in D5W 50 ML IV SCH ×3 (11:39→13:11)
--- NOTE | 2018-01-09 12:40 | PDINTPN ---
[facility] Progress Note Assessment/Plan: Assessment: S/P Large ICH: Cause uncertain. High ICPs >30 persist despite craniectomy, sedation, paralysis, hypernatremia, and pentobarbital coma. ICPs have remained high. Blown pupils. Has no chance for INSURANCE ADVISER recovery. Possibly brain . No other sides of brain activity. Pentobarbital level now less than 2. Apnea test to be done. Neurology involvement appreciated. Dr. Marcelino has seen the patient and performed all brain tests except the apnea test. All of these are confirmatory regarding brain . HTN: Severe initially, likely due to high ICP. Now lower, hypotensive, on dopamine. Respiratory Failure: On ventilator. Oxygenation is less. Will check an x-ray. Diabetes: Glucoses higher. On insulin. Plan: Formal apnea test to be done. If this is positive for brain the in donor [place] he will be notified and we will proceed with donation per the previous declaration by the patient and per the wishes the family. A new art line will be placed as his is failing. Fluids will be given to keep CVP in the 8-12 range. Pressors as needed to keep mean arterial pressure approximately 65 or greater. Check chest x-ray. Discussed with the patient's friends, his father and stepmother, respiratory, nursing, hospitalist, and the ICU multi disciplinary team. Sister arriving into [place] by plane later today. 50 min of critical care time spent directly with the patient and in discussions with the family, not including art line placement and therapeutic bronchoscopy. Addendum: A formal apnea test was done. While breathing 100% oxygen for over 10 min with a respiratory rate of 10, a tidal volume of 600 and 5 of peep the arterial blood gas showed a pH of 7.43, pCO2 41, and PO2 67. Saturations were 97%. The patient was then placed on a T-piece with 15 L of 100% oxygen flow by. After 15 min he had no evidence of any respiratory effort. Arterial blood gas at that time showed a pH is 7.15, pCO2 of 86 and a PO2 of 47. Saturations were 77%. He was officially declared brain . The time was 4:15 p.m.. The patient was placed back on the ventilator at the pre apnea test settings. Donor [place] was notified. Following the apnea test as outlined above, the patient's chest x-ray done this afternoon came back. There is now what appears to be complete atelectasis of the right lower lobe, possibly secondary to a mucus plug. Bronchoscopy will be performed for airway assessment, removal of mucous, and obtainment of cultures. This was discussed with donor [place]. Objective: Vital Signs Temp Pulse Resp BP Pulse Ox 37.7 C 97 13 103/61 96 01/09/18 12:00 01/09/18 12:00 01/09/18 12:00 01/09/18 12:00 01/09/18 12:00 Microbiology 01/07/18 12:04 Gram Stain - Final Head - Eswab Laboratory Results 01/09/18 05:50 01/09/18 05:50 01/08/18 01/09/18 01/10/18 05:59 05:59 05:59 Intake Total 4099 1974 Output Total 2405 3505 Balance 1694 -1531 PT 14.0 SEC (12.0-15.0) 01/07/18 13:30 INR 1.06 (0.83-1.16) 01/07/18 13:30 Physical Exam - Physical Exam General Appearance: unresponsive, other (On ventilator) EENT: ET tube, No PERRL/EOMI (Large bilaterally, not reactive) Neck: normal inspection Respiratory: lungs clear (Anteriorly), decreased breath sounds (At bases) Cardiac/Chest: regular rate, rhythm Abdomen: non-tender, soft, No normal bowel sounds Male Genitalia: other (Lund catheter in place, good urine output.) Skin: normal color, warm/dry Neuro/Psych: cognition abnormalities (Unresponsive, not moving), No no motor/ sensory deficits, No alert ICD10 Worksheet Patient Problems: Problems Problem Status Onset Intracranial hemorrhage Acute
--- NOTE | 2018-01-09 13:06 | HOSPPROG ---
Hospitalist Progress Note Assessment/Plan: 48 yo M w large ICH ICH: s/p evacuation elevated ICP: management dc'd as felt no chance for meaningful neurologic recovery awaiting [facility] htn:no further mangement given above proph: scd's dm: follow blood sugars goal < 180 Subjective: awaiting apnea test and further care from [facility]. case d/w dr baker Objective: Vital Signs Temp Pulse Resp BP Pulse Ox 37.7 C 97 13 103/61 96 01/09/18 12:00 01/09/18 12:00 01/09/18 12:00 01/09/18 12:00 01/09/18 12:00 Microbiology 01/07/18 12:04 Gram Stain - Final Head - Eswab Laboratory Results 01/09/18 05:50 01/09/18 05:50 01/08/18 01/09/18 01/10/18 05:59 05:59 05:59 Intake Total 4099 1974 Output Total 2405 3505 Balance 1694 -1531 PT 14.0 SEC (12.0-15.0) 01/07/18 13:30 INR 1.06 (0.83-1.16) 01/07/18 13:30 - Physical Exam Eyes: anicteric sclera Ears, Nose, Mouth, Throat: moist mucous membranes Cardiovascular: regular rate and rhythym, no murmur, rub, or gallop Respiratory: no respiratory distress Gastrointestinal: soft, non-tender abdomen Genitourinary: montano in urethra Skin: warm Musculoskeletal: No full muscle strength Neurologic: No AAOx3 Psychiatric: No interacting appropriately ICD10 Worksheet Patient Problems: Problems Problem Status Onset Intracranial hemorrhage Acute
[2018-01-09 13:08] VITALS: RESP 12
--- NOTE | 2018-01-09 13:38 | GCON ---
[f rep st] CONSULTATION NEUROLOGIC CONSULTATION/BRAIN EXAMINATION. The patient is a 48-year-old gentleman, whom I am asked to see in neurologic consultation regarding s uspected brain following intracerebral hemorrhage. I have reviewed the history with the family who was hosting him recently and reviewed all of the medical records from the emergency department, as well as the consultations and specialists involved. The patient does not have any neurologic hist ory, but developed symptoms over the last few weeks of some altered cognitive function and some droop ing of the face that were occurring episodically, and eventually got diagnosed with problems with blo od sugar and diabetes, and hypertension, and begun on treatment. He came to the hospital when friend s noticed he was continuing to do poorly on January 06. He has been having some headache for about 3 weeks, and it was getting worse. There was a lot more p rominent slurring of speech and difficulty walking apparently, so he was brought in. 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 No Babinski signs. He could lift each leg independently, and his speech was understandable. Over the next few hours, he had extensive diagnostic studies documenting a righ t hemisphere intracerebral hemorrhage with surrounding edema on CT scan and MRI as well. CT angiogra m of the head and neck showed no large-vessel stenoses. Neurosurgery was consulted and has been diepsh toring the patient. He began to decline over the next 48 hours to the point of the decision to do a right hemicraniectomy as a potential life-saving intervention, but he has not recovered and has had i ncreasing intracranial pressure and neurologic decline to the point of coma. He has reached the stat us now of potential brain prior to formal declaration. He has a [id number] status. He had been put on pentobarbital is an attempt to try to control the intracranial pressure, but that le ekta has come back and is less than 2. PAST MEDICAL HISTORY: Notable for recent diagnosis of diabetes and hypertension. 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 Not drinking alcohol currently, but had apparently s ome history of drinking alcohol prior to his diagnosis of diabetes. He quit smoking within the last year. Apparently smokes marijuana with a vapor pen daily. FAMILY HISTORY: The family history that we know of is a mother with multiple sclerosis and a sister having a history of Atkins's palsy. ALLERGIES: No known drug allergies. MEDICATIONS: The medications listed when he came in were ibuprofen and herbals. He had previously b een on pressors and sedatives, but he is going to be off medication now of any kind for over 24 hours . PHYSICAL EXAMINATION: VITAL SIGNS: Blood pressure 103/61, pulse 97, respirations 13, temperature 37 .7. GENERAL: He is lying in the bed in a comatose state with prominent edema of the face. There is no spontaneous movement. He is on a ventilator. NECK: Supple, with no bruits or masses. CARDIAC: Tachycardic, with no murmurs. NEUROLOGIC: Pupils are 5 mm and unreactive to light. He has no res ponse to verbal stimulation or any painful stimulation, including brow pressure or nail bed pressure in the extremities. Sternal rub produces no response. He has absent corneal reflexes. Oculocephali c testing reveals no movement. The eyes stay fixed. I performed cold caloric testing per protocol, and infusion on either side produced no reactions. There was no facial grimace or movement to any fo rm of stimulation. There was no cough or pharyngeal response to stimulation. Motor exam revealed fl accid extremities, with no response to any painful stimulation. The reflexes were absent. Toes were unresponsive to plantar stimulation. He has not had any respirations over the ventilator. LABORATORY DATA: His current white count is 12,000. Hematocrit 37%. Normal INR. Blood chemistry: Sodium 146, blood glucose 426. Pentobarbital level is less than 2. He has not had a blood gas toda y. Yesterday at 5:00 in the morning, his pH was 7.45, with a pCO2 of 33, an O2 of 104, and a bicarb of 24. IMPRESSION: The patient has suffered fluctuating neurologic symptoms over the last several weeks and then came to the hospital with worsening function and evidence of a large right hemisphere intracere bral hemorrhage with surrounding edema and mass-effect. 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 From a clinical standpoint, he has probable brain , but we need to obtain apnea testing, which will be performed with pulmonology, Dr. Hansen, shortly to confirm no brain stem func tion. At that point, he would meet clinical and diagnostic testing criteria for brain , which i s the equivalent of , and would have him potentially qualified for organ donation. The [facility] has been notified. I have discussed the case with friends and family. Total unit time of 50 minutes. /[id number]/MODL
[2018-01-09] MEDS: NS 1,000 ML IV SCH (15:00)
[2018-01-09] MEDS ORDERED: NOREPINEPHRINE BITARTRATE 4 MG in NS 500 ML IV SCH (15:00)
[2018-01-09] MEDS ORDERED: NOREPINEPHRINE BITARTRATE 4 MG in D5W 500 ML IV SCH (15:00)
[2018-01-09] MEDS ORDERED: NOREPINEPHRINE/NS 500 ML IV SCH (15:00)
[2018-01-09] MEDS ORDERED: ALBUMIN 5% 500 ML BOTTLE IV ONE (15:06)
[2018-01-09] MEDS ORDERED: ALBUMIN 5% 500 ML IV ONE ×2 (15:10→16:49)
[2018-01-09] MEDS ORDERED: LIDOCAINE 1% 5 ML SDV ONE (16:39)
[2018-01-09] MEDS ORDERED: LIDOCAINE 2% 5 ML SDV ONE (16:40)
[2018-01-09] MEDS ORDERED: LIDOCAINE 1% 300 MG/30 ML SDV ONE (16:40)
[2018-01-09 17:28] VITALS: BP 106/66; PULSE 108; TEMP 99.7; O2SAT 95
--- NOTE | 2018-01-09 20:59 | GPN ---
[f rep st] PROCEDURE NOTE DATE OF PROCEDURE: 01/09/2018 PROCEDURE PERFORMED: Therapeutic bronchoscopy. REASON FOR PROCEDURE: New atelectasis of the right lower lobe. The patient is on a ventilator and u nresponsive secondary to a large intracerebral hemorrhage. He is in the process of being declared de ad. PROCEDURE NOTE: The procedure was done in the intensive care unit. Informed consent was obtained ve rbally from the patient's father. Appropriate time-out was performed. No conscious sedation was req uired. No lidocaine was required. The fiberoptic bronchoscope was passed via an adapter on the end of the patient's endotracheal tube a nd into the distal trachea. The left side was within normal limits, without significant secretions. The bronchus intermedius and right upper lobe were clear. There was a mucus plug related to the rig ht lower lobe. This was removed easily with suction lavage. Significant distal secretions were not found. The right middle lobe was clear of secretions. Underlying airway anatomy was normal. The br onchial mucosa was not significantly inflamed or abnormal. A culture was obtained and sent for aerob ic analysis. There were no complications. IMPRESSION: Isolated mucus plug at the orifice to the right lower lobe. This was successfully remov ed without difficulty. Cultures were sent. /[id number]/MODL
--- NOTE | 2018-01-09 20:59 | GPN ---
[f rep st] PROCEDURE NOTE PROCEDURE PERFORMED: Arterial line placement. INDICATIONS: A 48-year-old, on the ventilator, status post severe intracranial hemorrhage with hypot ension. His radial arterial line has failed and an arterial line is required. DESCRIPTION OF PROCEDURE: The procedure was performed in the patient's room in the intensive care un it. Appropriate time-out was performed. Informed consent was obtained from the patient's father rhea haider. An arterial catheter was placed in the right femoral artery without problems. The artery was initial ly cannulated with a small catheter. A guidewire was placed through this catheter. The small cathet er was removed and a longer catheter was placed over the guidewire and sutured in place. The entire procedure was done using sterile technique. There were no complications. There was good blood retur n from the catheter and an initial arterial blood gas has been drawn. ASSESSMENT: Successful arterial catheter placement in the right femoral artery. /[id number]/MODL
--- NOTE | 2018-01-13 14:10 | GOP ---
[f rep st] OPERATIVE REPORT DATE OF OPERATION: 01/07/2018 SURGEON: Dave Lambert MD NEUROSURGEON: Dave Lambert MD. ASPHALT RAKER: Baron Brown PA-C. ANESTHESIA: GETA. PREOPERATIVE DIAGNOSIS: Right frontal intraparenchymal hemorrhage with decline in neurologic exam an d concerns for uncal herniation. POSTOPERATIVE DIAGNOSIS: Right frontal intraparenchymal hemorrhage with decline in neurologic exam a nd concerns for uncal herniation. PROCEDURE PERFORMED: A right frontotemporoparietal decompressive craniectomy with evacuation of a ri ght frontal intraparenchymal hematoma with a partial right frontal lobectomy, and placement of a righ t frontal intracranial pressure monitor. FINDINGS: SPECIMENS: There was frozen and permanent right frontal brain tissue sent for concerns of a possible hemorrhagic metastasis that preliminary came back as benign. ESTIMATED BLOOD LOSS: 250 cc. DESCRIPTION OF PROCEDURE: The patient was brought into the operating room. Sign-in was performed. He was given IV antibiotics to prevent postoperative infection. He was smoothly induced under genera l anesthesia and intubated without difficulty. IV access and arterial line were placed. SCDs were p laced to prevent postoperative DVT. A Lund catheter was placed. The patient was turned 180 degrees and his head was placed in a three-point Saini header setup operator to 70 pounds per square inch. His hea d was turned to the left so that the right operative side would be up. His head was turned approxima tely 45 degrees. A right-sided decompressive and craniectomy incision was planned in the shape of a reverse question ken beginning behind the hairline at the midpupillary line extending posteriorly to the parietal region down to the yarsanism region and then just above the ear and then twisting down to in front of the tragus of the right ear. Hair was shaved along the incision line. His hair was arsenio woody with ChloraPrep solution and rubbing alcohol, which was allowed to dry. The incision was re-trac ed with a marking pen. ChloraPrep was used to sterilize the skin. Once this dried, blue towels, Iob an, and sterile drape were used to create a sterile surgical field. 20 cc of 0.25% Marcaine with 1:2 00,000 parts of epinephrine was injected along the planned incision line. Prior to beginning the pro cedure, a time-out was performed with all members of surgery, nursing, anesthesia went over the oksana domingo checklist items and agreed to proceed as 1. A #10 scalpel was used to incise the skin straight down to the cranium, and this incision was extended carefully. Once we got to the temporal region, a was used to dissect between the galea and the temporalis fascia, so that the incision cou ld be completed without incising the temporalis fascia. Once we completed our incision, Kinga clips were placed for hemostasis. We then used Bovie electrocautery to use to incise the temporalis fascia and temporalis muscle down to the root of the zygoma, and swept forward the scalp and the temporalis muscle in 1 myocutaneous flap. We were able to advance all the way to the keyhole. Our myocutaneou s flap was retracted backward with the use of a Donna bar. A bur hole was placed just above the zygo ma in the temporal region, just behind the keyhole in the frontal region, and then in the posterior t emporal region, and a #3 Cordova was used to dissect the dura off the bone prior to completing our c raniotomy with a craniotome drill bit. The frontotemporoparietal hemicraniectomy flap was placed on the back table in hopes that it could be replaced at the end of surgery. Unfortunately, given the ev ents of surgery, it was moved to the freezer for storage. The dura was opened with a #15 scalpel malena de and smooth Metzenbaum scissors, and we had essentially exposed the frontal and temporal lobes on t mari right side. We did note a large what appeared to be blackened and thrombosed vein traversing in t he central sulcus to the vein of Trolard. The brain of the frontal lobe was quite hyperem ic in the entire operative field. I made a corticectomy with bipolar electrocautery and sharp incisi on just in front of the precentral gyrus, and immediately we got into liquid and gelatinous hemorrhag e. We sent as much of the gelatinous hemorrhagic material as possible, and we also sent some concern ing looking brain to pathology for frozen section and permanent section, and Dr. Pederson called back and indicated he did not see any neoplastic cells. We continued to complete our clot evacuation, als o taking some of the frontal lobe, and then we ran into quite a bit of trouble in terms of our hemost asis capabilities. It became quite evident that the patient had significant venous hypertension. Re gardless of what manner of hemostasis we used, other areas of the brain began to bleed. The brain wa s very friable and had the appearance of a venous infarct in terms of his granularity, and the patien t would just unfortunately not stop bleeding. It was not profuse arterial bleeding, it was just a ge neral ooze from the operative bed. We would coagulate 1 part of the brain, stop the bleeding, and an other would begin to well up with blood. I used every hemostatic agent the hospital owned including thrombin-soaked Gelfoam, irrigation, Surgiflo, Avitene powder, significant tamponade, even with my ramirez nds, and cotton balls soaked in hydrogen peroxide. Unfortunately, the bleeding just would not stop. Ultimately, I laid some Surgicel in the operative bed, and was able to get some decent control of it ; however, the patient's brain became quite swollen and was swelling out of the craniectomy defect. I completed the dural opening ensuring that all of the dura had been opened to the edges of the crani al defect, then thus I elected not to replace the bone flap as I was concerned about the patient's po stoperative intracranial hypertension. We tried to place a ventriculostomy and despite several passe s were unable to do so. The patient did have significantly very tiny ventricles on his preoperative exam from brain swelling. Therefore, I elected to place an intracranial pressure monitoring which we tunneled back under the scalp. I placed a #7 flat CARLY in the epidural/subgaleal space, and we began closing the wound with 2-0 Vicryl sutures for the galeal layer and tom for the skin. The drainag e tube was secured with a stitch and hooked up to a bulb to thumbprint compression. The ICP monitor was zeroed and hooked up as well. The wound was dressed sterilely. The dressings were removed. The patient was returned to Anesthesia. We went straight down to the CAT scan department postoperativel y and as expected, there was still significant hemorrhage in the operative bed. Fortunately with the performance of a craniectomy, the patient's brain did come back to the right side, and there was les s midline shift, but there was still significant hemorrhage intraoperatively, and in fact in the area s where he had not previously had hemorrhage to begin with. The place where the patient had hemorrha ge were successfully evacuated. We went straight to the ICU where the patient's ICPs were found to b e in the 40s. We initiated met maximal medical measurements to lower his ICPs which did help some. The patient's close friends were updated regarding his guarded and serious neurologic condition. I w as there for the entirety of the procedure from start to finish, including updating the nurses and th e patient's friends at the bedside. All counts were correct. I also called the patient's sister per micheline, who is currently living in [place], and I also called the patient's father and spoke to both of them personally regarding the guarded prognosis that the patient is dealing with. We will initiat e maximal medical management for ICP control. I discussed this case with all my partners and none of them would have done anything differently before or after surgery. They agree that having a deep ve nous thrombosis with a venous infarct and venous hypertension with inability to control the blood pre ssure and stop intraoperative hemorrhage is a difficult situation without a great surgical answer. I remained at the bedside postoperatively for approximately an hour and a half personally dictating ca re. IMPLANTS: None. COMPLICATIONS: Significant intraoperative hemorrhage that was difficult to control. INDICATIONS FOR PROCEDURE: The patient is an unfortunate 48-year-old male, who has been having neuro logic symptoms for approximately 1-2 months that initially began with slurred speech and had progress ed to increasing headache and left facial and arm and leg hemiparesis. He came into the hospital yes terday and was seen by my partner, Dr. Blake Mena, as well as our CARDIOGRAPHER Suzi Parsons and myself, and at that point in time, the patient was doing remarkably well considering his scan. He was awake and alert, following all commands, and conversant. This morning on rounds, we discovered this neurologi c exam had deteriorated. We repeated a scan and it did appear that his midline shift was worse, so Sharon Mena made a call to take the patient to the operating theater and given the fact that it was my patient, asked that I come to perform surgery, which of course I was able to do. Emergent consent wa s obtained over the phone by the patient's father, who lives in [place], and is planning on traveling to [place] as soon as possible. /[id number]/MODL
--- NOTE | 2018-01-18 11:10 | ASMTCMCOM ---
CM Note CM Note Notes: This is a correction to note dated 01-07-18. Patient was diagnosed and admitted for an acute parenchymal brain hemorrhage. It is unclear the circumstances surrounding the brain hemorrhage. The statement of "1 month due to PCP not diagnosing" is inaccurate and needs to be stricken from the record. Date Signed: 01/18/2018 11:10 AM Electronically Signed By:Vaishnavi Tatum LCSW
== END 2018-01-09 16:15 | disposition expired | DRG 23 ==
LOC: F2N 18:22
PROVIDERS: ADMIT Neurological Surgery; ATTEND Neurological Surgery
DX: I61.8 Other nontraumatic intracerebral hemorrhage (principal); G93.5 Compression of brain; J98.11 Atelectasis; J96.91 Respiratory failure, unspecified with hypoxia; J98.09 Other diseases of bronchus, not elsewhere classified; E11.9 Type 2 diabetes mellitus without complications; I10 Essential (primary) hypertension; Z66 Do not resuscitate
CPT/HCPCS: 82491-90; 82947-QW; 96374; A9585; C1729; C1751; J0171; J0360; J0461; J0690; J1100; J1265; J1580; J1815; J1953; J2060; J2150; J2405; J2515; J2597; J2704; J3010; J3480; P9041; Q9967

== ENCOUNTER 2018-01-09 16:15 | Inpatient (IN) | payer OTHER ==
[2018-01-09] MEDS ORDERED: ALBUMIN 5% 500 ML BOTTLE IV ONE (16:54)
[2018-01-09 17:25] LABS: PLATELET COUNT 188 10^3/uL (150-400)
[2018-01-09] MEDS ORDERED: NOREPINEPHRINE BITARTRATE 4 MG in D5W 500 ML IV SCH (17:30)
[2018-01-09] MEDS ORDERED: NS 1,000 ML IV SCH (17:30)
[2018-01-09] MEDS ORDERED: ALBUMIN 5% 500 ML IV ONE (17:30)
[2018-01-09] MEDS ORDERED: POTASSIUM Cl (KCl) 20 MEQ, SODIUM CL 14.6% 38.5 MEQ in WATER FOR INJECTION,STERILE 1,00... IV SCH (17:30)
[2018-01-09] MEDS ORDERED: DESMOPRESSIN ACETATE 4 MCG/ML INJ IVP ONE (18:30)
[2018-01-09] MEDS ORDERED: NOREPINEPHRINE BITARTRATE 4 MG in NS 500 ML IV SCH (18:30)
[2018-01-09] MEDS ORDERED: NALOXONE HCL IVP ONE ×2 (19:30→20:00)
[2018-01-09] MEDS ORDERED: INSULIN REGULAR HUMAN 100 UNIT/ML UNIT IVP ONE (19:30)
[2018-01-09] MEDS ORDERED: D50W 25 GM/50 ML SYR IVP ONE (19:30)
[2018-01-09] MEDS ORDERED: LEVOTHYROXINE 20 MCG in NS (SYRINGE) 50 ML IVP ONE (19:30)
[2018-01-09] MEDS ORDERED: POTASSIUM Cl (KCl) 20 MEQ in D5W 1,000 ML IV SCH (19:30)
[2018-01-09] MEDS ORDERED: ALBUTEROL 60 PUFFS/8 GM MDI IH ONE (19:53)
[2018-01-09] MEDS: LEVOTHYROXINE 200 MCG in NS 500 ML IV SCH (20:00)
[2018-01-09] MEDS ORDERED: LR 1,000 ML IV ONE (20:00)
[2018-01-09] MEDS ORDERED: methylPREDNISolone SOD SUCC 2 GM in D5W 100 ML IV ONE (20:00)
[2018-01-09] MEDS: VASOPRESSIN/DEXTROSE 250 ML IV SCH (20:01)
[2018-01-09 20:11] LABS: PLATELET COUNT 178 10^3/uL (150-400)
[2018-01-09] MEDS: ALBUTEROL 60 PUFFS/8 GM MDI IH SCH ×2 (20:15→23:50)
[2018-01-09 20:20] LABS: INR 1.29 (0.83-1.16); PROTIME(PATIENT) 16.3 SEC (12.0-15.0)
--- NOTE | 2018-01-09 20:36 | CPEKG ---
Heart Rate: 109 RR Interval: 550 P-R Interval: 108 QRSD Interval: 84 QT Interval: 372 QTC Interval: 502 P Tempe: 54 QRS Tempe: 72 T Wave Tempe: 49 EKG Severity - ABNORMAL ECG - EKG Impression: SINUS TACHYCARDIA EKG Impression: PROLONGED QT INTERVAL Electronically Signed By: Tono Cortez 10-Jan-2018 09:51:51
[2018-01-09 20:51] LABS: CREATINE KINASE 120 IU/L (0-224)
[2018-01-09] MEDS ORDERED: DESMOPRESSIN ACETATE 4 MCG/ML INJ IVP SCH (21:00)
[2018-01-09] MEDS: IPRATROPIUM/ALBUTEROL 3 ML DEYVIAL IH SCH ×2 (21:07→23:50)
[2018-01-09] MEDS ORDERED: MAGNESIUM SULF 1 GM/DEXTROSE 100 ML IV ONE (22:00)
[2018-01-10] MEDS ORDERED: INSULIN REGULAR HUMAN 100 UNIT/ML UNIT ONE (03:26)
[2018-01-10] MEDS: IPRATROPIUM/ALBUTEROL 3 ML DEYVIAL IH SCH (03:27)
[2018-01-10] MEDS: ALBUTEROL 60 PUFFS/8 GM MDI IH SCH ×5 (03:27→19:46)
[2018-01-10] MEDS ORDERED: POTASSIUM Cl (KCl) 100 ML IV ONE (03:30)
[2018-01-10] MEDS: METHYLPRED IV SCH ×3 (03:52→19:59)
[2018-01-10] MEDS: [UNRECOGNIZED DRUG - OTHER] IV SCH ×3 (03:52→19:59)
[2018-01-10] MEDS ORDERED: INSULIN REGULAR HUMAN 100 UNIT/ML UNIT IVP ONE ×5 (04:00→20:00)
[2018-01-10] MEDS: VASOPRESSIN/DEXTROSE 250 ML IV SCH ×3 (06:24→19:40)
[2018-01-10 08:46] LABS: PLATELET COUNT 114 10^3/uL (150-400)
[2018-01-10 08:59] LABS: INR 1.45 (0.83-1.16); PROTIME(PATIENT) 17.8 SEC (12.0-15.0)
[2018-01-10 09:02] LABS: CREATINE KINASE 180 IU/L (0-224)
[2018-01-10] MEDS: LEVOTHYROXINE 200 MCG in NS 500 ML IV SCH (09:48)
[2018-01-10] MEDS ORDERED: LIDOCAINE 1% 300 MG/30 ML SDV ONE (10:01)
[2018-01-10] MEDS ORDERED: fentaNYL 100 MCG/2 ML INJ ONE (10:02)
[2018-01-10] MEDS ORDERED: MIDAZOLAM 2 MG/2 ML VIAL ONE (10:02)
[2018-01-10] MEDS ORDERED: IOPAMIDOL (ISOVUE-370) 150 ML BTL IV ONE (10:02)
[2018-01-10] MEDS ORDERED: MAGNESIUM SULF 1 GM/DEXTROSE 100 ML IV ONE (10:07)
--- NOTE | 2018-01-10 10:14 | PDHPUP ---
History & Physical Update H&P update statement: This history and physical update is based on an assessment of the patient which was completed after admission or registration (within 24 hours), but prior to the surgery/procedure. H&P update: H&P reviewed & patient examined, no change in patient's condition since H&P completed
[2018-01-10] MEDS ORDERED: NS 1,000 ML IV SCH (10:15)
--- NOTE | 2018-01-10 10:15 | PDPROPOC ---
Sedation Plan of Care Sedation Plan of Care: vital signs stable Planned drugs: other (patient is intubated. This is a cath for organ donation. Consent is part of organ donation consent. ) Mallampati Score: Unable to assesss Mallampati Reference Image:
--- NOTE | 2018-01-10 10:41 | ECHO ---
[email or web address] [address] Main: [phone] Fax: Transthoracic Echocardiogram Name: DANIELLE WINTERS MR#: [id number] Study Date: 01/10/2018 Study Time: 07:48 AM Date of : 1970 Age: 48 year(s) Height: 172.7 cm (68 in.) Weight: 84.82 kg (187 lb.) BSA: 1.99 m2 Gender: Male Examination: Echo Indication: evaluate for donor alliance; heart transplant Image Quality: Technically Difficult Contrast: Requested by: Tyrone Suarez BP: 83 mmHg/55 mmHg Heart Rate: Rhythm: Normal sinus rhythm Indication: evaluate for donor alliance; heart transplant Procedure Staff Label Paster: Serenity Owen [facility] Reading Physician: Kyra Rizo Requesting Provider: Gonzalo Jamison Conclusions: Normal size left ventricle. No LV hypertrophy. Normal global systolic LV function. EF is 58 %. No regional wall motion abnormality. Normal size right ventricle. Low normal right ventricular function.. The left atrium is normal in size. The right atrium is normal in size. No signfiicant valvular abnormalitiesPulmonary artery pressure is not obtained due to inadequate TR jet. Pulmonary valve not well visualized. No pericardial effusion. Measurements: Chambers Valvular Assessment AV/MV Valvular Assessment TV/PV Normal Normal Normal Name Value Range Name Value Range Name Value Range IVSd (2D): 0.9 cm (0.6 cm-1.1 AV Vmax: 1.05 m/s (1 m/s-1.7 PV Vmax: 0.71 m/s (0.6 m/s-0.9 cm) m/s) m/s) LVDd (2D): 4.2 cm (4.2 cm-5.9 AV maxP mmHg ( - ) PV PGmax: 2 mmHg ( - ) cm) LVOT Vmax: 0.76 m/s (0.7 m/s-1.1 LVDs (2D): 3.0 cm (2.1 cm-4 m/s) cm) NAYAN (Vmax): 2.3 cm2 ( - ) LVPWd (2D): 0.9 cm (0.6 cm-1 MV E Vmax: 0.54 m/s ( - ) cm) MV A Vmax: 0.47 m/s ( - ) LVOTd 2.0 cm 2.0 cm mm MV E/A: 1.15 ( - ) LVEF (MOD4): 58 % (>=55 %) RVDd(2D): 3.4 cm (1.9 cm-3.8 cmmm) Patient: DANIELLE WINTERS Study Date: 01/10/2018 Page 1 of 2 07:48 AM Continued Measurements: Chambers Valvular Assessment AV/MV Name Value Name Value LADs: 2.6 cm MV DecTime: 201 m/s LADs Lon.8 cm LA Area: 8.9 cm2 LA Volume: 25 ml LA Volume Index: 12.6 ml/m2 TAPSE: 1.9 cm Findings: Left Ventricle: Normal size left ventricle. No LV hypertrophy. Normal global systolic LV function. EF is 58 %. No regional wall motion abnormality. Right Ventricle: Normal size right ventricle. Low normal right ventricular function.. Left Atrium: The left atrium is normal in size. Right Atrium: The right atrium is normal in size. Mitral Valve: The mitral valve is normal in appearance and function. Trivial mitral valve regurgitation. No mitral stenosis is present. Aortic Valve: There is no aortic valve regurgitation. No aortic valve stenosis is present. The aortic valve is trileaflet and opens normally. Tricuspid Valve: The tricuspid valve is normal in appearance and function. Trivial tricuspid valve regurgitation. Pulmonary artery pressure is not obtained due to inadequate TR jet. Pulmonic Valve: Pulmonary valve not well visualized. Aorta: Normal size aortic root. IVC: The IVC is normal sized. Pericardium: No pericardial effusion. (No Signature Object) Patient: DANIELLE WINTERS Study Date: 01/10/2018 Page 2 of 2 07:48 AM [id number]
--- NOTE | 2018-01-10 10:47 | PDGENHP ---
History & Physical Chief Complaint: organ donor History of Present Illness: 48 yo M admitted with large intracerebral hemorrhage that progressed to brain despite neurosurgical intervention. Now requires right and left heart cath as part of organ donation evaluation. Pertinent Past, Social, Family History: reviewed Relevant Physical Exam: vital signs stable Cardiorespiratory Assessment: intubated
--- NOTE | 2018-01-10 11:41 | POSTOPPROG ---
Post Op Note Date of Operation: 01/10/18 Surgeon: Kyra Rizo Anesthesia: Other (Specify) (patient brain . On no sedation) Pre-op Diagnosis: organ donation protocol Post-op Diagnosis: normal coronary arteries and normal right and left heart filling pressures Indication: organ donation Procedure: 1. Left heart cath 2. Right heart cath 3. LV gram Findings: see dictated report. Normal coronary arteries and normal R/L heart filling Inf/Abcess present in the surg proc area at time of surgery?: No EBL: Minimal Complications: none Drains: Other (none) Specimen(s): none
--- NOTE | 2018-01-10 11:55 | CPIP ---
[f rep st] INVASIVE CARDIAC PROCEDURE DATE OF PROCEDURE: 01/10/2018 INDICATIONS: Organ donation protocol. COMPLICATIONS: None. DESCRIPTION OF PROCEDURE: The patient has been declared brain by the Neurology service. Consen t was obtained for organ donation procedures, including consent for cardiac catheterization. He was brought to the catheterization laboratory on a ventilator and prepped and draped in sterile fashion. 1% lidocaine was used for local anesthesia of the left groin, as the patient had a right femoral art erial line pre-existing. Using modified Seldinger technique, a 7-Albanian introducer sheath was placed in the left femoral vein and a 6-Albanian introducer sheath was placed in the right common femoral art mary. A [employer] catheter was used for right heart catheterization. JL4 and Schuyler right catheter , as well as JR4 catheter were used for coronary angiography. Pigtail catheters used for left ventri culography. FINDINGS: 1. The left main is normal and bifurcates into the LAD and left circumflex system. 2. The LAD is a medium-sized vessel reaching the apex. There is 1 large branching diagonal vessel. There is no significant coronary disease in the LAD or its diagonal. 3. Left circumflex is codominant. There is a large obtuse marginal. There is no significant benítez ry disease in the left circumflex or its obtuse marginal. 4. The right coronary artery is codominant. There is no significant coronary disease. LEFT VENTRICULOGRAPHY: The left ventricular ejection fraction is normal at 65%. There is normal wal l motion. HEMODYNAMICS: RIGHT HEART PRESSURES: RA pressure is 13, RV pressure 31/11, PA pressure 31/25 with a mean of 27, and pulmonary capillary wedge pressure is 16. Calculated Rocio cardiac output is 5.76 L/ minute with a Rocio cardiac index of 2.83 L/minute per meter sq. This was done with the patient on th e ventilator on 60% FiO2. Aortic pressure 103/69. LV pressure 96/12 with an LV end-diastolic pressure of 22. There is no grad ient upon pullback of the catheter from the left ventricle to the aorta, indicating no significant ao rtic stenosis. CONCLUSIONS: 1. Normal coronary arteries in this codominant system. 2. Normal right and left heart filling pressures. 3. Normal left ventricular systolic function without aortic stenosis. Results discussed with Donor [place] representative phlebotomy services. /[id number]/MODL
[2018-01-10 13:18] VITALS: RESP 16
[2018-01-10] MEDS ORDERED: D5W 1,000 ML IV SCH (13:30)
--- NOTE | 2018-01-10 15:14 | HOSPPROG ---
Hospitalist Progress Note Assessment/Plan: 48 yo M w catastrophic ICH awaiting organ harvest Subjective: awaiting organ harvest Objective: Vital Signs Temp Pulse Resp BP Pulse Ox 36.3 C 76 16 107/60 97 01/10/18 15:00 01/10/18 15:00 01/10/18 15:00 01/10/18 15:00 01/10/18 15:00 Microbiology 01/09/18 08:15 - Final Sputum, Induced/Suctioned Sputum Culture - Final 01/09/18 17:20 - Final Sputum, Induced/Suctioned Laboratory Results 01/10/18 08:36 01/10/18 14:00 01/09/18 01/10/18 01/11/18 05:59 05:59 05:59 Intake Total 6340 Output Total 1780 Balance 4560 PT 17.8 SEC (12.0-15.0) H 01/10/18 08:36 INR 1.45 (0.83-1.16) H 01/10/18 08:36 - Physical Exam Constitutional: no apparent distress, other (unresponsive) Neurologic: No AAOx3 Psychiatric: No interacting appropriately ICD10 Worksheet Patient Problems: Problems Problem Status Onset Intracranial hemorrhage Acute
[2018-01-10] MEDS ORDERED: 1/2 NS 1,000 ML IV SCH (17:00)
[2018-01-10 18:49] LABS: PLATELET COUNT 107 10^3/uL (150-400)
[2018-01-10 18:58] LABS: INR 1.78 (0.83-1.16); PROTIME(PATIENT) 20.8 SEC (12.0-15.0)
[2018-01-10 19:04] LABS: CREATINE KINASE 148 IU/L (0-224)
[2018-01-10] MEDS ORDERED: VASOPRESSIN 25 UNIT in NS 250 ML IV SCH (20:00)
[2018-01-10 20:06] VITALS: BP 118/56; PULSE 81; TEMP 99.1; O2SAT 100
== END 2018-01-10 21:14 | disposition still patient (30) | DRG 951 ==
LOC: F2N 16:15 → EEVIPCON 16:15
PROVIDERS: ADMIT Neurological Surgery; ATTEND Neurological Surgery
DX: Z52.89 Donor of other specified organs or tissues (principal); Z13.6 Encounter for screening for cardiovascular disorders
CPT/HCPCS: 82947-QW; 99001-90; J0690; J1265; J1644; J1815; J2250; J2310; J2930; J3010; J3475; J3480; P9016; P9041; Q9967